=== PATIENT | female | born 1990 | race American Indian/Alaskan Native ===

== ENCOUNTER 2017-05-22 13:25 | Emergency (ER) | payer MEDICAID, MEDICARE ==
[2017-05-22] MEDS ORDERED: VIMPAT 200 MG in NACL 0.9% 100 ML IV ONE (14:41)
[2017-05-22] MEDS ORDERED: KEPPRA 1,000 MG/NS 0.75% 100ML 1,000 MG/100 ML BAG IV ONE (14:41)
[2017-05-22] MEDS ORDERED: TOPAMAX PO ONE (14:56)
[2017-05-22 15:13] LABS: Hematocrit 34.5 % (30.3-42.9); Hemoglobin 10.9 gm/dl (10.1-14.3); Mean Corpuscular HGB Conc 32 % (30-34); Mean Corpuscular Hemoglobin 26 pg (28-32); Mean Corpuscular Volume 83 fl (79-97); Platelet Count 277 K/mm3 (140-440); Red Blood Count 4.18 M/mm3 (3.65-5.03); Red Cell Distribution Width 14.5 % (13.2-15.2); White Blood Count 9.1 K/mm3 (4.5-11.0)
[2017-05-22 15:24] LABS: BUN/Creatinine Ratio 17; Blood Urea Nitrogen 10 mg/dL (7-17); Calcium 8.5 mg/dL (8.4-10.2); Carbon Dioxide 20 mmol/L (22-30); Chloride 108.6 mmol/L (98-107); Glucose 94 mg/dL (65-100); Sodium 141 mmol/L (137-145)
[2017-05-22 15:32] LABS: Anion Gap 17 mmol/L; Potassium 4.6 mmol/L (3.6-5.0)
--- NOTE | 2017-05-22 19:14 | Emergency Department Report ---
ED Seizure HPI - General Chief Complaint: Seizure Stated Complaint: SEIZURE Time Seen by Provider: 05/22/17 16:02 Source: patient, EMS Mode of arrival: Stretcher Limitations: No Limitations - History of Present Illness Initial Comments: 27-year-old female with a past medical history of liver disease, schizophrenia, and seizures presents to the ED via EMS from [place] for seizure. Patient had one seizure prior to arrival. She denies any preceding symptoms. No tongue laceration or urinary incontinence reported. The patient has been at [place] 1 day. She was medically cleared at another hospital yesterday but did not receive her seizure medication last night or this morning. She has otherwise been compliant. She denies any physical complaints at this time. Patient is at [facility] currently for suicidal ideation and attempted to walk in front of cars. Denies any toxic ingestion. - Related Data Allergies Allergy/AdvReac Type Severity Reaction Status Date / Time No Known Allergies Allergy Verified 05/22/17 14:28 ED Review of Systems ROS: Stated complaint: SEIZURE Other details as noted in HPI Comment: All other systems reviewed and negative Other: Constitutional: No fevers chills Eyes: No eye pain visual changes ENT: No ear pain or throat pain Neck: Denies pain Respiratory: Denies cough wheezing shortness of breath Cardiovascular: Denies chest pain, palpitations, syncope GI: Denies abdominal pain, nausea, vomiting, diarrhea : Denies dysuria Musculoskeletal: Denies back pain Skin: Denies rash, lesions, erythema Neurologic: Denies headache, numbness, weakness Psychiatric: Denies suicidal ideation, hallucinations ED Past Medical Hx - Past Medical History Previous Medical History?: Yes Hx Liver Disease: Yes Hx Seizures: Yes Hx Psychiatric Treatment: Yes (Pt has a history of schizophrenia) - Surgical History Past Surgical History?: Yes Additional Surgical History: Pt had aliver transplant at the age of 15 - Social History Smoking Status: Never Smoker Substance Use Type: None ED Physical Exam - General Limitations: No Limitations - Other Other exam information: General: No limitations, patient is alert in no acute distress Head exam: Atraumatic, normocephalic Eyes exam: Normal appearance, pupils equal reactive to light, extraocular movements intact ENT: Moist mucous membrane, normal oropharynx Neck exam: Normal inspection, full range of motion, no meningismus nontender Respiratory exam: Clear to auscultation bilateral, no wheezes, rales, crackles Cardiovascular: Normal rate and rhythm, normal heart sounds Abdomen: Soft, nondistended, and nontender, with normal bowel sounds, no rebound, or guarding Extremity: Full range of motion normal inspection no deformity Back: Normal Inspection, full range of motion, no tenderness Neurologic: Alert, oriented x3, cranial nerves intact, no motor or sensory deficit Psychiatric: normal affect, normal mood Skin: Warm, dry, intact ED Course Vital Signs 05/22/17 05/22/17 05/22/17 14:11 14:27 15:12 Temperature 99.3 F 99.3 F Pulse Rate 108 H 108 H Respiratory 15 15 18 Rate Blood Pressure 118/81 Blood Pressure 118/81 118/81 [Right] O2 Sat by Pulse 100 100 100 Oximetry 05/22/17 05/22/17 05/22/17 15:26 15:30 15:45 Temperature Pulse Rate 104 H 99 H 99 H Respiratory 12 14 18 Rate Blood Pressure 118/77 121/73 114/67 Blood Pressure [Right] O2 Sat by Pulse Oximetry 05/22/17 05/22/17 05/22/17 16:00 16:15 16:30 Temperature Pulse Rate 103 H 102 H 99 H Respiratory 16 19 15 Rate Blood Pressure 123/80 121/76 117/79 Blood Pressure [Right] O2 Sat by Pulse 100 100 Oximetry 05/22/17 05/22/17 05/22/17 16:45 17:00 17:15 Temperature Pulse Rate 105 H 98 H Respiratory 10 L 17 Rate Blood Pressure 120/82 113/77 117/79 Blood Pressure [Right] O2 Sat by Pulse 100 67 L Oximetry - Reevaluation(s) Reevaluation #1: 05/22/17 19:12 In the ED patient received IV Keppra, by mouth Topamax, and IV Vimpat. No further seizure activity. No symptoms reported ED Medical Decision Making - Lab Data Result diagrams: 05/22/17 14:50 05/22/17 14:50 Lab Results 05/22/17 05/22/17 05/22/17 Range/Units 14:50 14:50 14:50 WBC 9.1 (4.5-11.0) K/mm3 RBC 4.18 (3.65-5.03) M/mm3 Hgb 10.9 (10.1-14.3) gm/dl Hct 34.5 (30.3-42.9) % MCV 83 (79-97) fl MCH 26 L (28-32) pg MCHC 32 (30-34) % RDW 14.5 (13.2-15.2) % Plt Count 277 (140-440) K/mm3 Sodium 141 (137-145) mmol/L Potassium 4.6 (3.6-5.0) mmol/L Chloride 108.6 H (98-107) mmol/L Carbon Dioxide 20 L (22-30) mmol/L Anion Gap 17 mmol/L BUN 10 (7-17) mg/dL Creatinine 0.6 L (0.7-1.2) mg/dL Estimated GFR > 60 ml/min BUN/Creatinine Ratio 17 % Glucose 94 (65-100) mg/dL POC Glucose (70-105) Calcium 8.5 (8.4-10.2) mg/dL HCG, Qual Negative (Negative) 05/22/17 Range/Units 15:16 WBC (4.5-11.0) K/mm3 RBC (3.65-5.03) M/mm3 Hgb (10.1-14.3) gm/dl Hct (30.3-42.9) % MCV (79-97) fl MCH (28-32) pg MCHC (30-34) % RDW (13.2-15.2) % Plt Count (140-440) K/mm3 Sodium (137-145) mmol/L Potassium (3.6-5.0) mmol/L Chloride (98-107) mmol/L Carbon Dioxide (22-30) mmol/L Anion Gap mmol/L BUN (7-17) mg/dL Creatinine (0.7-1.2) mg/dL Estimated GFR ml/min BUN/Creatinine Ratio % Glucose (65-100) mg/dL POC Glucose 97 (70-105) Calcium (8.4-10.2) mg/dL HCG, Qual (Negative) - Medical Decision Making Patient had a seizure prior to arrival secondary to noncompliance while in the hospital receiving medical clearance for transfer to psychiatric facility. She received a dose of all her seizure medication would be transferred back to room with her continuous psychiatric treatment. - Differential Diagnosis seizure, electrolyte abnormality, medication Critical Care Time: No Critical care attestation.: If time is entered above; I have spent that time in minutes in the direct care of this critically ill patient, excluding procedure time. ED Disposition Clinical Impression: Seizure Disposition: DC-01 TO HOME OR SELFCARE Is pt being admited?: No Does the pt Need Aspirin: No Condition: Stable Instructions: Recurrent Seizures Adult (ED) Additional Instructions: Continue current seizure medication. Return if symptoms worsen. Time of Disposition: 19:14
[2017-05-22 19:16] VITALS: BP 117/79
== END 2017-05-22 20:59 | disposition home or self-care (01) ==
LOC: ED 13:25
DX: R56.9 Unspecified convulsions (principal); F20.9 Schizophrenia, unspecified
CPT/HCPCS: 36415; 80048; 82962; 84703; 85027; 96365; 96367; 99284; C9254; J1953

== ENCOUNTER 2017-08-30 09:38 | Emergency (ER) | payer MEDICARE ==
[2017-08-30] MEDS ORDERED: KEPPRA 1,000 MG/NS 0.75% 100ML 1,000 MG/100 ML BAG IV ONE (10:03)
[2017-08-30 11:00] LABS: Basophils % (Auto) 0.6 % (0.0-1.8); Eosinophils # (Auto) 0.3 K/mm3 (0.0-0.4); Eosinophils % (Auto) 4.3 % (0.0-4.3); Hematocrit 34.5 % (30.3-42.9); Hemoglobin 10.9 gm/dl (10.1-14.3); Lymphocytes # (Auto) 1.3 K/mm3 (1.2-5.4); Lymphocytes % (Auto) 17.3 % (13.4-35.0); Mean Corpuscular HGB Conc 32 % (30-34); Mean Corpuscular Hemoglobin 26 pg (28-32); Mean Corpuscular Volume 83 fl (79-97); Monocytes # (Auto) 0.6 K/mm3 (0.0-0.8); Monocytes % (Auto) 8.1 % (0.0-7.3); Platelet Count 201 K/mm3 (140-440); Red Blood Count 4.15 M/mm3 (3.65-5.03); Red Cell Distribution Width 16.9 % (13.2-15.2)
--- NOTE | 2017-08-30 11:07 | Emergency Department Report ---
HPI - General Chief Complaint: Seizure Time Seen by Provider: 08/30/17 10:57 - HPI HPI: Room 2 The patient is a 27-year-old female presenting with chief complaint of "seizure- like activity." The patient has a history of pseudoseizures and EMS reports the patient began having seizure-like activity" when she was discharged from [place]. Patient completely alert and oriented at this time during the interview. Patient denies any complaints. Patient denies pain, fever or nausea or vomiting. Location: [See above] Duration: Unknown Quality: "Seizure-like" Severity: Unknown Modifying factors: [see above] Context: [see above] Mode of transportation: [not driving] ED Past Medical Hx - Past Medical History Previous Medical History?: Yes Hx Liver Disease: Yes (Hep C; liver transplant) Hx Seizures: Yes (pseudo-seizures) Hx Psychiatric Treatment: Yes (Pt has a history of schizophrenia; bipolar; MDD) - Surgical History Past Surgical History?: Yes Additional Surgical History: Pt had aliver transplant at the age of 15 - Family History Family history: no significant - Social History Smoking Status: Unknown if ever smoked ED Review of Systems ROS: Stated complaint: SEIZURES Other details as noted in HPI Constitutional: denies: fever Eyes: denies: eye pain ENT: denies: throat pain Cardiovascular: denies: chest pain Gastrointestinal: denies: abdominal pain, nausea, vomiting Genitourinary: denies: dysuria Musculoskeletal: denies: back pain Neurological: denies: headache Physical Exam - Physical Exam Vital Signs: Vital Signs 08/30/17 09:51 Temperature 98.6 F Pulse Rate 93 H Respiratory 14 Rate Blood Pressure 108/70 O2 Sat by Pulse 99 Oximetry Physical Exam: GENERAL: The patient is well-developed well-nourished female lying on stretcher not appearing to be in acute distress. Patient using cell phone HEENT: Normocephalic. Atraumatic. Extraocular motions are intact. Patient has moist mucous membranes. NECK: Supple. No meningitic signs are noted. Trachea midline CHEST/LUNGS: Clear to auscultation. There is no respiratory distress noted. HEART/CARDIOVASCULAR: Regular. There is no tachycardia. There is no gallop rub or murmur. ABDOMEN: Abdomen is soft, nontender. Patient has normal bowel sounds. There is no abdominal distention. SKIN: There is no rash. There is no edema. There is no diaphoresis. NEURO: The patient is awake, alert, and oriented. The patient is cooperative. The patient has no focal neurologic deficits. The patient has normal speech. Cranial nerves II through XII grossly intact, no drift MUSCULOSKELETAL: There is no evidence of acute injury. ED Course Vital Signs 08/30/17 09:51 Temperature 98.6 F Pulse Rate 93 H Respiratory 14 Rate Blood Pressure 108/70 O2 Sat by Pulse 99 Oximetry ED Medical Decision Making - Lab Data Result diagrams: 08/30/17 10:44 08/30/17 10:44 Laboratory Tests 08/30/17 08/30/17 08/30/17 10:44 10:44 10:44 WBC 7.4 RBC 4.15 Hgb 10.9 Hct 34.5 MCV 83 MCH 26 L MCHC 32 RDW 16.9 H Plt Count 201 Lymph % (Auto) 17.3 Alfalfa % (Auto) 8.1 H Eos % (Auto) 4.3 Baso % (Auto) 0.6 Lymph # 1.3 Alfalfa # 0.6 Eos # 0.3 Baso # 0.0 Seg Neutrophils % 69.7 Seg Neutrophils # 5.1 Sodium 140 Potassium 4.2 Chloride 106.3 Carbon Dioxide 23 Anion Gap 15 BUN 12 Creatinine 0.6 L Estimated GFR > 60 BUN/Creatinine Ratio 20 Glucose 86 Calcium 8.1 L Magnesium 1.80 Total Bilirubin < 0.20 AST 10 ALT 6 L Alkaline Phosphatase 43 Total Protein 7.1 Albumin 3.6 L Albumin/Globulin Ratio 1.0 HCG, Qual Negative - Differential Diagnosis pseudoseizures Critical care attestation.: If time is entered above; I have spent that time in minutes in the direct care of this critically ill patient, excluding procedure time. ED Disposition Clinical Impression: Seizure-like activity Disposition: DC-01 TO HOME OR SELFCARE Is pt being admited?: No Does the pt Need Aspirin: No Condition: Stable Instructions: Recurrent Seizures Adult (ED) Additional Instructions: Return to the emergency department immediately should you develop worsening symptoms, fever, inability to tolerate food or liquid or any other concerns. Referrals: YE ALVA MD [Staff Physician] - 3-5 Days Time of Disposition: 11:36
[2017-08-30 11:20] LABS: Alanine Aminotransferase 6 units/L (7-56); Albumin 3.6 g/dL (3.9-5); BUN/Creatinine Ratio 20; Blood Urea Nitrogen 12 mg/dL (7-17); Calcium 8.1 mg/dL (8.4-10.2); Hemolysis Index 11
[2017-08-30 11:57] VITALS: BP 99/63
== END 2017-08-30 11:56 | disposition home or self-care (01) ==
LOC: ED 09:38
DX: R56.9 Unspecified convulsions (principal); F31.9 Bipolar disorder, unspecified; Z94.4 Liver transplant status
CPT/HCPCS: 36415; 80053; 83735; 84703; 85025; 96374; 99284; J1953

== ENCOUNTER 2017-08-30 20:26 | Emergency (ER) | payer MEDICARE ==
[2017-08-31 00:55] LABS: Basophils % (Auto) 0.5 % (0.0-1.8); Eosinophils # (Auto) 0.5 K/mm3 (0.0-0.4); Eosinophils % (Auto) 5.2 % (0.0-4.3); Hematocrit 34.8 % (30.3-42.9); Lymphocytes % (Auto) 32.3 % (13.4-35.0); Mean Corpuscular HGB Conc 31 % (30-34); Mean Corpuscular Hemoglobin 26 pg (28-32); Mean Corpuscular Volume 83 fl (79-97); Monocytes # (Auto) 1.1 K/mm3 (0.0-0.8); Monocytes % (Auto) 11.7 % (0.0-7.3); Platelet Count 222 K/mm3 (140-440); Red Cell Distribution Width 16.9 % (13.2-15.2)
[2017-08-31 01:10] LABS: BUN/Creatinine Ratio 20; Blood Urea Nitrogen 12 mg/dL (7-17); Calcium 8.2 mg/dL (8.4-10.2); Hemolysis Index 6
--- NOTE | 2017-08-31 01:27 | Emergency Department Report ---
ED Seizure HPI - General Chief Complaint: Seizure Stated Complaint: SEIZURE Time Seen by Provider: 08/31/17 00:53 Source: patient Mode of arrival: Ambulatory Limitations: No Limitations - History of Present Illness Initial Comments: Patient is 27 years old female history of pseudoseizure, this is her second visit to the ER since yesterday with the same complaint patient stated that she is taking Keppra and Topamax. Patient stated that she had an unwitnessed seizure this evening. No complaint at this moment. MD Complaint: possible seizure Witnessed:: No Trauma: No - Related Data Allergies Allergy/AdvReac Type Severity Reaction Status Date / Time No Known Allergies Allergy Verified 05/22/17 14:28 ED Review of Systems ROS: Stated complaint: SEIZURE Other details as noted in HPI Comment: All other systems reviewed and negative Constitutional: denies: chills, fever Respiratory: denies: cough, orthopnea, shortness of breath, SOB with exertion, SOB at rest, wheezing Cardiovascular: denies: chest pain, palpitations, dyspnea on exertion Gastrointestinal: denies: abdominal pain, nausea, vomiting, diarrhea, constipation, hematochezia Musculoskeletal: denies: back pain Neurological: denies: headache, weakness, numbness, paresthesias ED Past Medical Hx - Past Medical History Previous Medical History?: Yes Hx Liver Disease: Yes (Hep C; liver transplant) Hx Seizures: Yes (pseudo-seizures) Hx Psychiatric Treatment: Yes (Pt has a history of schizophrenia; bipolar; MDD) - Surgical History Past Surgical History?: Yes Additional Surgical History: Pt had aliver transplant at the age of 15 - Social History Smoking Status: Never Smoker ED Physical Exam - General Limitations: No Limitations General appearance: alert, in no apparent distress - Head Head exam: Present: atraumatic, normocephalic - Eye Eye exam: Present: normal appearance, PERRL - ENT ENT exam: Present: normal exam, normal orophraynx, mucous membranes moist - Neck Neck exam: Present: normal inspection, full ROM. Absent: tenderness, meningismus, lymphadenopathy - Respiratory Respiratory exam: Present: normal lung sounds bilaterally. Absent: respiratory distress, wheezes, rales, rhonchi, chest wall tenderness, accessory muscle use, decreased breath sounds, prolonged expiratory - Cardiovascular Cardiovascular Exam: Present: regular rate, normal rhythm, normal heart sounds - GI/Abdominal GI/Abdominal exam: Present: soft, normal bowel sounds. Absent: distended, tenderness, guarding, rebound, rigid, organomegaly, mass, bruit, pulsatile mass , hernia - Extremities Exam Extremities exam: Present: normal inspection, full ROM, normal capillary refill - Back Exam Back exam: Present: normal inspection, full ROM. Absent: tenderness, CVA tenderness (L) - Neurological Exam Neurological exam: Present: alert, oriented X3, CN II-XII intact, normal gait - Skin Skin exam: Present: warm, intact, normal color ED Course Vital Signs 08/30/17 08/31/17 21:13 02:27 Temperature 98.9 F 98.1 F Pulse Rate 86 82 Respiratory 16 16 Rate Blood Pressure 125/71 Blood Pressure 118/74 [Left] O2 Sat by Pulse 100 100 Oximetry - Reevaluation(s) Reevaluation #1: 08/31/17 06:08 Patient is sleeping comfortably in no acute distress fever when down to 102. I explain to the mother the need to alternate Tylenol and Motrin for fever. Advised patient to follow up with her wallcovering hanger in the next 2-3 days. ED Medical Decision Making - Lab Data Result diagrams: 08/31/17 00:35 08/31/17 00:35 - Medical Decision Making No seizure activity observed in the ER. Patient advised to follow-up with her neurologist in the next 3 days. Critical care attestation.: If time is entered above; I have spent that time in minutes in the direct care of this critically ill patient, excluding procedure time. ED Disposition Clinical Impression: Seizure Disposition: DC-01 TO HOME OR SELFCARE Is pt being admited?: No Condition: Stable Instructions: Recurrent Seizures Adult (ED) Referrals: PRIMARY CARE, [Primary Care Provider] - 3-5 Days
[2017-08-31 02:27] VITALS: BP 118/74
[2017-08-31 03:12] LABS: Bilirubin,Urine NEG (Negative); Blood,Urine NEG (Negative); Color,Urine Colorless (Yellow); Protein,Urine <15 mg/dL mg/dL (Negative); RBC,Urine < 1.0 /HPF (0.0-6.0); Urobilinogen,Urine < 2.0 mg/dL (<2.0)
[2017-08-31 03:19] LABS: Amphetamine Screen,Urine PRESUMPTIVE NEGATIVE; Benzodiazepines Screen,Urine PRESUMPTIVE NEGATIVE; Cannabinoid Screen,Urine PRESUMPTIVE NEGATIVE; Cocaine Screen,Urine PRESUMPTIVE NEGATIVE; Methadone Screen,Urine PRESUMPTIVE NEGATIVE; Opiate Screen,Urine PRESUMPTIVE NEGATIVE
== END 2017-08-31 06:48 | disposition home or self-care (01) ==
LOC: ED 20:26
DX: R56.9 Unspecified convulsions (principal); F20.9 Schizophrenia, unspecified; F31.9 Bipolar disorder, unspecified; Z86.19 Personal history of other infectious and parasitic diseases; Z94.4 Liver transplant status
CPT/HCPCS: 36415; 80048; 80307; 81001; 82550; 84703; 85025; 99283